=== PATIENT | female | born 1950 | race Caucasian/White ===

== ENCOUNTER → 2017-04-02 | Outpatient (CLI) | payer MEDICARE ==
[~2017-04-02] MED LIST: ADVAIR 250-501 EACH INH; ASPIR-LOW81 MG PO; AZITHROMYCIN250 MG PO; COLCHICINE 0.60.6 MG PO; COMBIVENT0.074 GM/I INH; CORDARONE 200M200 MG PO; COZAAR50 MG PO; CRESTOR10 MG PO; CRESTOR20 MG PO; KLOR-CON M1010 MEQ PO; LASIX TAB 20 MG20 MG PO; LEVOTHYROXINE25 MCG PO; NITROGLYCERIN2.5 M1 PO; NITROSTAT 0.40.4 MG SL; NORCO 10-325 T1 EACH PO; PLAVIX 75 MG TA75 MG PO; PROTONIX40 MG PO; TOPROL XL 100100 MG PO; TRADJENTA5 MG PO; VENTOLIN/PROVE0.5 ML INH; ZOCOR 40 MG TAB40 MG PO; ZYLOPRIM 100 M100 MG PO
== END ==
LOC: EXRD 09:42
DX: M25.551 Pain in right hip (principal)
CPT/HCPCS: 73502

== ENCOUNTER → 2017-06-19 | Outpatient (CLI) | payer MEDICARE | LOC: NM 11:50 | DX: I20.9 Angina pectoris, unspecified (principal); I51.7 Cardiomegaly; R94.39 Abnormal result of other cardiovascular function study | CPT/HCPCS: 78452; 93017; A9502; J2785 ==

== ENCOUNTER 2020-11-30 15:30 | Inpatient (IN) | payer OTHER ==
[~2020-11-30] VITALS: Ht 152.4 cm; Wt 71.5 kg
[~2020-11-30 15:30] MED LIST changes: +ALBUTEROL2.5 MG/3 M INH; +BUMEX 1MG TABLET1 MG GT; +BUMEX 1MG TABLET1 MG PO; -CRESTOR20 MG PO; +FUROSEMIDE40 MG PO; +LASIX40 MG PO; +LOSARTAN POTASS25 MG PO; +NITROGLYCERIN2.5 MG PO; +SPIRONOLACTONE25 MG PO; +SYNTHROID75 MCG PO; +TOPROL XL25 MG PO; -VENTOLIN/PROVE0.5 ML INH
[2020-11-30 16:17] LABS: HEMOGLOBIN 14.1 gm/dl (12.3-15.3); RED BLOOD COUNT 4.26 M/UL (4.00-5.10); WHITE BLOOD COUNT 10.8 K/UL (4.5-11.0)
[2020-11-30] MEDS ORDERED: ROCALTROL CA0.25 MCG PO (18:33)
[2020-11-30] MEDS ORDERED: COZAAR50 MG PO (18:34)
[2020-12-01 06:27] LABS: HEMOGLOBIN 13.1 gm/dl (12.3-15.3); RED BLOOD COUNT 3.97 M/UL (4.00-5.10); WHITE BLOOD COUNT 8.4 K/UL (4.5-11.0)
[2020-12-02 05:28] LABS: HEMOGLOBIN 12.9 gm/dl (12.3-15.3); RED BLOOD COUNT 3.93 M/UL (4.00-5.10); WHITE BLOOD COUNT 10.2 K/UL (4.5-11.0)
[2020-12-05 04:50] LABS: HEMOGLOBIN 11.9 gm/dl (12.3-15.3); RED BLOOD COUNT 3.62 M/UL (4.00-5.10); WHITE BLOOD COUNT 9.9 K/UL (4.5-11.0)
[2020-12-07] MEDS ORDERED: MECLIZINE HCL25 MG PO (17:03)
[2020-12-07] MEDS ORDERED: NITROGLYCERIN2.5 MG PO (17:03)
== END 2020-12-07 18:36 | disposition home or self-care (01) | DRG 291 ==
LOC: ER1 15:30 → CDU 18:00 → MED SURG 4 18:00
PROVIDERS: Internal Medicine; Internal Medicine Nephrology; ADMIT Family Medicine
PROC: B24BZZZ Ultrasonography of Heart with Aorta (ICD-10-PCS; principal; 2020-11-30)
DX: I13.0 Hypertensive heart and chronic kidney disease with heart failure and stage 1 through stage 4 chronic kidney disease, or unspecified chronic kidney disease (principal); I50.43 Acute on chronic combined systolic (congestive) and diastolic (congestive) heart failure; N17.9 Acute kidney failure, unspecified; E87.1 Hypo-osmolality and hyponatremia; N18.4 Chronic kidney disease, stage 4 (severe); E87.3 Alkalosis; I47.2 Ventricular tachycardia; I42.2 Other hypertrophic cardiomyopathy; I25.10 Atherosclerotic heart disease of native coronary artery without angina pectoris; E11.22 Type 2 diabetes mellitus with diabetic chronic kidney disease; H81.10 Benign paroxysmal vertigo, unspecified ear; E78.5 Hyperlipidemia, unspecified; E03.9 Hypothyroidism, unspecified; J44.9 Chronic obstructive pulmonary disease, unspecified; M10.9 Gout, unspecified; R06.00 Dyspnea, unspecified; F17.210 Nicotine dependence, cigarettes, uncomplicated; Z90.49 Acquired absence of other specified parts of digestive tract; Z95.810 Presence of automatic (implantable) cardiac defibrillator
CPT/HCPCS: ECHO; 0240U; 36415; 70450; 71045; 80048; 80053; 80061; 80069; 82533; 82550; 82553; 82803; 82962; 83036; 83735; 83880; 83970; 84484; 85025; 85610; 93005; 93306; 94640; 94664; 94760; 96372; 96374; 96375; 97161; 99285; J1644; J1940

== ENCOUNTER 2021-04-01 18:10 | Inpatient (IN) | payer OTHER ==
[~2021-04-01] VITALS: Ht 152.4 cm; Wt 70.3 kg
[~2021-04-01 18:10] MED LIST changes: +MECLIZINE HCL25 MG PO; +ROCALTROL CA0.25 MCG PO
[2021-04-01 18:42] LABS: HEMOGLOBIN 11.6 gm/dl (12.3-15.3); RED BLOOD COUNT 3.57 M/UL (4.00-5.10); WHITE BLOOD COUNT 10.1 K/UL (4.5-11.0)
[2021-04-02 05:11] LABS: HEMOGLOBIN 11.2 gm/dl (12.3-15.3); RED BLOOD COUNT 3.46 M/UL (4.00-5.10); WHITE BLOOD COUNT 9.6 K/UL (4.5-11.0)
[2021-04-02] MEDS ORDERED: NITROGLYCERIN2.5 MG PO (12:01)
[2021-04-02] MEDS ORDERED: CALCITRIOL0.25 MCG PO (12:02)
[2021-04-02] MEDS ORDERED: LIPITOR20 MG PO (17:08)
[2021-04-02] MEDS ORDERED: GLUCOTROL5 MG PO (18:26)
[2021-04-02] MEDS ORDERED: VASCEPA1 GM PO (18:29)
[2021-04-02] MEDS ORDERED: ZAROXOLYN/DIULO5 MG PO (18:35)
[2021-04-03 04:31] LABS: HEMOGLOBIN 10.6 gm/dl (12.3-15.3); RED BLOOD COUNT 3.29 M/UL (4.00-5.10); WHITE BLOOD COUNT 9.4 K/UL (4.5-11.0)
[2021-04-04 03:37] LABS: RED BLOOD COUNT 3.4 M/UL (4.00-5.10); WHITE BLOOD COUNT 8.3 K/UL (4.5-11.0)
[2021-04-04] MEDS ORDERED: BUMETANIDE1 MG PO (11:59)
[2021-04-04] MEDS ORDERED: MUCINEX600 MG PO (11:59)
[2021-04-04] MEDS ORDERED: OMNICEF 300 MG300 MG PO (11:59)
[2021-04-04] MEDS ORDERED: ZYRTEC10 MG PO (12:02)
--- NOTE | 2021-04-04 12:16 | NUR ---
patient o2 sat 86% on room air
== END 2021-04-04 14:33 | disposition home or self-care (01) | DRG 291 ==
LOC: ER1 18:10 → CDU 22:55 → CCU 22:55 → M/S 04-03 21:22
PROVIDERS: Emergency Medicine; Internal Medicine; Internal Medicine Nephrology; ADMIT Internal Medicine
DX: I13.0 Hypertensive heart and chronic kidney disease with heart failure and stage 1 through stage 4 chronic kidney disease, or unspecified chronic kidney disease (principal); J96.21 Acute and chronic respiratory failure with hypoxia; I50.43 Acute on chronic combined systolic (congestive) and diastolic (congestive) heart failure; N17.9 Acute kidney failure, unspecified; N18.4 Chronic kidney disease, stage 4 (severe); E87.1 Hypo-osmolality and hyponatremia; J41.1 Mucopurulent chronic bronchitis; I25.10 Atherosclerotic heart disease of native coronary artery without angina pectoris; I65.29 Occlusion and stenosis of unspecified carotid artery; B96.20 Unspecified Escherichia coli [E. coli] as the cause of diseases classified elsewhere; I42.2 Other hypertrophic cardiomyopathy; F17.200 Nicotine dependence, unspecified, uncomplicated; I44.7 Left bundle-branch block, unspecified; E03.9 Hypothyroidism, unspecified; E66.9 Obesity, unspecified; M10.9 Gout, unspecified; D53.9 Nutritional anemia, unspecified; E78.5 Hyperlipidemia, unspecified; K21.9 Gastro-esophageal reflux disease without esophagitis; Z95.1 Presence of aortocoronary bypass graft; Z68.30 Body mass index [BMI] 30.0-30.9, adult; Z95.810 Presence of automatic (implantable) cardiac defibrillator; Z90.49 Acquired absence of other specified parts of digestive tract; Z83.3 Family history of diabetes mellitus; Z90.710 Acquired absence of both cervix and uterus; Z82.49 Family history of ischemic heart disease and other diseases of the circulatory system; Z80.3 Family history of malignant neoplasm of breast
CPT/HCPCS: ECHO; 36415; 36600; 71046; 80048; 80053; 80061; 81001; 82550; 82553; 82570; 82803; 82962; 83036; 83735; 83874; 83880; 84100; 84133; 84156; 84300; 84484; 85025; 85027; 86140; 87070; 87077; 87186; 87205; 89050; 93005; 93306; 94640; 94664; 94760; 96374; 96376; 99285; J1644; P9047; U0002

== ENCOUNTER 2021-05-17 17:27 | Emergency (ER) | payer OTHER ==
[~2021-05-17 17:27] MED LIST changes: +BUMETANIDE1 MG PO; +CALCITRIOL0.25 MCG PO; +GLUCOTROL5 MG PO; +LIPITOR20 MG PO; +MUCINEX600 MG PO; +OMNICEF 300 MG300 MG PO; +VASCEPA1 GM PO; +ZAROXOLYN/DIULO5 MG PO; +ZYRTEC10 MG PO
[2021-05-17 19:21] LABS: HEMOGLOBIN 12.6 gm/dl (12.3-15.3); RED BLOOD COUNT 3.89 M/UL (4.00-5.10); WHITE BLOOD COUNT 10.1 K/UL (4.5-11.0)
== END 2021-05-17 23:00 | disposition home or self-care (01) ==
LOC: ER1 17:27
PROVIDERS: Physician Assistant
DX: R06.00 Dyspnea, unspecified (principal); I11.0 Hypertensive heart disease with heart failure; I50.9 Heart failure, unspecified; J44.9 Chronic obstructive pulmonary disease, unspecified; E11.9 Type 2 diabetes mellitus without complications; E03.9 Hypothyroidism, unspecified; F17.210 Nicotine dependence, cigarettes, uncomplicated; Z90.49 Acquired absence of other specified parts of digestive tract
CPT/HCPCS: 71045; 80053; 82550; 82553; 83874; 83880; 84484; 85025; 99285

== ENCOUNTER 2022-03-20 14:12 | Inpatient (IN) | payer MEDICARE ==
[~2022-03-20] VITALS: Ht 152.4 cm; Wt 59.0 kg
[~2022-03-20 14:12] MED LIST changes: -ASPIR-LOW81 MG PO; +ASPIRIN EC81 MG PO
[2022-03-20 15:07] LABS: HEMOGLOBIN 13.4 gm/dl (12.3-15.3); RED BLOOD COUNT 4.08 M/UL (4.00-5.10); WHITE BLOOD COUNT 19.5 K/UL (4.5-11.0)
[2022-03-20] MEDS ORDERED: FARXIGA10 MG PO (18:37)
[2022-03-20] MEDS ORDERED: FENOFIBRATE145 MG PO (18:38)
[2022-03-20] MEDS ORDERED: BUMETANIDE1 MG PO (18:38)
[2022-03-20] MEDS ORDERED: CRESTOR20 MG PO (18:39)
[2022-03-20] MEDS ORDERED: POTASSIUM CHLO20 ME1 PO (18:39)
[2022-03-21 03:35] LABS: HEMOGLOBIN 12.4 gm/dl (12.3-15.3); RED BLOOD COUNT 3.89 M/UL (4.00-5.10); WHITE BLOOD COUNT 18.1 K/UL (4.5-11.0)
[2022-03-21 18:12] LABS: KPC-CARBAPENEM-RESISTANCE GENE Not Detected (Negative); STAPHYLOCOCCUS AUREUS Not Detected (Negative); STREP AGALACTIAE (GROUP B) Not Detected (Negative); STREPTOCOCCUS Not Detected (Negative); vanA/B (VANCOMYCIN RESIST GENE Not Detected (Negative)
[2022-03-21 18:13] LABS: CANDIDA ALBICANS Not Detected (Negative); CANDIDA KRUSEI Not Detected (Negative); CANDIDA TROPICALIS Not Detected (Negative); ESCHERICHIA COLI Not Detected (Negative); HAEMOPHILUS INFLUENZAE Not Detected (Negative); KLEBSIELLA OXYTOCA Not Detected (Negative); KLEBSIELLA PNEUMONIAE Not Detected (Negative); PROTEUS Not Detected (Negative); PSEUDOMONAS AERUGINOSA Not Detected (Negative); SERRATIA MARCESANS Not Detected (Negative); STREP PYOGENES (GROUP A) Not Detected (Negative)
[2022-03-21 19:22] LABS: STAPHYLOCOCCUS DETECTED (Negative)
[2022-03-22 04:38] LABS: HEMOGLOBIN 11.5 gm/dl (12.3-15.3); RED BLOOD COUNT 3.64 M/UL (4.00-5.10); WHITE BLOOD COUNT 20.2 K/UL (4.5-11.0)
[2022-03-23 05:29] LABS: HEMOGLOBIN 11.5 gm/dl (12.3-15.3); RED BLOOD COUNT 3.66 M/UL (4.00-5.10)
[2022-03-24 02:23] LABS: RED BLOOD COUNT 3.77 M/UL (4.00-5.10); WHITE BLOOD COUNT 15.8 K/UL (4.5-11.0)
[2022-03-25 02:35] LABS: HEMOGLOBIN 12.2 gm/dl (12.3-15.3); RED BLOOD COUNT 3.91 M/UL (4.00-5.10); WHITE BLOOD COUNT 13.5 K/UL (4.5-11.0)
[2022-03-26 06:58] LABS: HEMOGLOBIN 12.4 gm/dl (12.3-15.3); RED BLOOD COUNT 3.95 M/UL (4.00-5.10); WHITE BLOOD COUNT 13.5 K/UL (4.5-11.0)
[2022-03-28 06:41] LABS: HEMOGLOBIN 12.4 gm/dl (12.3-15.3); RED BLOOD COUNT 3.96 M/UL (4.00-5.10)
--- NOTE | 2022-03-28 09:12 | NUR ---
0905- Notified Dr. So of patient having increased shortness of breath and requesting her home dose of bumex. MD informed of oxygen level in the 80s and patient put on high flow oxygen at 5L. New order for albumin 12.5mg IV once and bumex 1mg IV one time order.
--- NOTE | 2022-03-29 17:39 | NUR ---
PATIENT OXYGENATION SATURATION NOTED TO BE 78% ON 5 LITERS HIGH FLOW NASAL CANNULA. RN NOTIFIED RESPIRATORY THERAPY AND THEY CAME TO ASSESS PATIENT. RN AND RESPIRATORY THERAPIST INCREASED OXYEGN TO 15 LITERS AND ONLY INCREASED PATIENT'S OXYGEN SATURATION TO 86%. RN MADE DR. PARNELL AWARE. MD ORDERED BUMEX IVP. PATIENT COMPLAINED OF CHEST PAIN. RN ADMINISTERED ONE DOSE OF PRN NITROGLYCERIN. PATIENT VERBALIZED RELIEF. MD MADE AWARE. RESPIRATORY THERAPIST SPOKE WITH MD AND REQUESTED ABG AND BIPAP. NO S/SX OF DISTRESS. BED LOCKED AND LOW. CALL LIGHT WITHIN REACH. FAMILY AT BEDSIDE.
[2022-03-30 06:00] LABS: HEMOGLOBIN 11.8 gm/dl (12.3-15.3); RED BLOOD COUNT 3.77 M/UL (4.00-5.10); WHITE BLOOD COUNT 16.4 K/UL (4.5-11.0)
--- NOTE | 2022-03-31 07:29 | NUR ---
PATIENT NOTED TO HAVE RESPIRATORY DIFFICULTY ON NASAL CANNULA THIS AM. OXYGEN SATURATION NOTED TO BE IN THE MID TO LOW 70'S AND PATIENT HEART RATE NOTED TO BE 110. TELEMETRY NOTIFIED RN OF PATIENT'S RHYTHM GOING INTO AFIB RVR THEN PACE MAKER KICKING IN. RN APPLIED PATIENT'S BIPAP TO COMPENSATE FOR HYPOXIA. PATIENT'S OXYGEN INCREASED TO 100% AND HEART RATE RETURNED TO SINUS RHYTHM 60-70. RN NOTIFIED ONCALL RELATIONSHIP MANAGER, DR. STREETER OF PATIENT'S EPISODE THIS AM. MD STATED PATIENT'S INCREASE IN HEART RATE WAS DUE TO HYPOXIA AND WAS NOT A CONCERN LONG IT NORMALIZED WHEN PATIENT BECAME PROPERLY OXYGENATED. DR. STREETER INSTRUCTED RN TO NOTIFY DAY SHIFT HOSPITALIST FOR FURTHER INSTRUCTION IF THESE COMPLICATIONS PERSISTED. RN PLACED COPY OF TELEMETRY STRIP IN FRONT OF PATIENT'S CHART. PATIENT RESTING IN BED. CALL LIGHT WITHIN REACH. NO S/SX OF DISTRESS NOTED. DAUGHTER AT BEDSIDE.
[2022-04-01 06:33] LABS: HEMOGLOBIN 12.1 gm/dl (12.3-15.3); RED BLOOD COUNT 3.85 M/UL (4.00-5.10); WHITE BLOOD COUNT 14.1 K/UL (4.5-11.0)
[2022-04-03 13:18] LABS: BUN/CREATININE RATIO 53 (0-10)
[2022-04-03 15:46] LABS: WBC (AUTOMATED) 301 10^3
[2022-04-03 15:47] LABS: RBC (AUTOMATED) 2500 10^6
[2022-04-03 15:48] LABS: MONONUCLEAR CELLS 92.7 %; POLYMORPHONUCLEAR 7.3 %
[2022-04-04 09:28] LABS: HEMOGLOBIN 11.2 gm/dl (12.3-15.3); RED BLOOD COUNT 3.56 M/UL (4.00-5.10)
[2022-04-04 16:41] LABS: LDH, BODY FLUID 113 U/L; TOTAL PROTEIN, BODY FLUID 1.4 gm/dL
[2022-04-04 17:59] LABS: ADENOVIRUS F 40/41 Not Detected (Negative); ASTROVIRUS Not Detected (Negative); CAMPYLOBACTER Not Detected (Negative); E.COLI 0157 Not Detected (Negative); ENTAMOEBA HISTOLYTICA Not Detected (Negative); ENTEROAGGREGATIVE E.COLI (EAEC Not Detected (Negative); ENTEROPATHOGENIC E.COLI (EPEC) Not Detected (Negative); ENTEROTOXIGENIC E.COLI (ETEC) Not Detected (Negative); GIARDIA LAMBLIA Not Detected (Negative); NOROVIRUS GI/GII Not Detected (Negative); PLESIOMONAS SHIGELLOIDES Not Detected (Negative); ROTOVIRUS A Not Detected (Negative); SALMONELLA Not Detected (Negative); SAPOVIRUS Not Detected (Negative); SHIG/ENTEROINVAS.ECOLI (EIEC) Not Detected (Negative); SHIGA-LIK TOX.PRO.E.COLI (STEC Not Detected (Negative); VIBRIO Not Detected (Negative); VIBRIO CHOLERAE Not Detected (Negative); YERSINIA ENTEROCOLITICA Not Detected (Negative)
--- NOTE | 2022-04-05 03:03 | NUR ---
LATE ENTRY FOR 04/04/2022 @ 18:45 - During bedside shift report, oncoming and offgoing RNs attempted to place DNR bracelet on patient. Patient stated that she "just wants to leave things how she talked with MD Felton this morning" and is requesting to not wear bracelet. Patient states she doesn't want family to be made aware of her decision to be DNR status. Patient states she doesn't want family to argue about her decision. RNs told patient that staff involved in her care will be informed of her code status. Patient verbalized understanding, alert and oriented x3, capable of making own decisions.
[2022-04-05 13:29] LABS: CRYPTOSPORIDIUM DETECTED (Negative)
--- NOTE | 2022-04-06 11:15 | NUR ---
DR. HERNÁNDEZ SPOKE WITH FAMILY OVER PHONE AND IN PATIENT ROOM ABOUT RISKS AND BENEFITS OF A REPEAT THORACENTESIS THIS AM. PATIENT AND FAMILY VERBALIZED UNDERSTANDING AND STATED THEY WISHED TO PROCEED WITH PROCEDURE. CONSENT SIGNED BY DR. HERNÁNDEZ AND WITNESSED BY RN, VERBAL CONSENT PER PATIENT PATIENT NOTED TO BE FATIGUED AND UNABLE TO SIGN AT PRESENT.
--- NOTE | 2022-04-06 11:43 | NUR ---
DR. HERNÁNDEZ PERFORMED BEDSIDE THORACENTESIS UTILIZING ULTRASOUND. RN ASSISTED WITH PROCEDURE AND 400 ML OF FLUID WAS DRAINED FROM LEFT LUNG. FLUID APPEARED DARK YELLOW AND SPECIMEN SAMPLES WERE SENT TO LAB. PATIENT VERBALIZED IMPROVED VENTILATION AFTER FLUID WAS REMOVED AND ASKED FOR A POPSICLE. DR. HERNÁNDEZ PLACED A BANDAID TO COLLECTION SIDE TO LEFT SIDE. NO BLEEDING NOTED. NO S/SX OF PAIN OR DISTRESS NOTED TO PATIENT. PATIENT PENDING CT PER DR. HERNÁNDEZ ORDER. BED LOCKED AND LOW. FAMILY UPDATED AT BEDSIDE OF CONDITION, VERBALIZED UNDERSTANDING. CALL LIGHT WITHIN REACH.
[2022-04-06 12:52] LABS: MONONUCLEAR CELLS 81.7 (75-100); POLYMORPHONUCLEAR % 18.3 (0-25); RBC (AUTOMATED) 1400 (0-100000); WBC (AUTOMATED) 317 (0-500)
--- NOTE | 2022-04-06 13:00 | NUR ---
RN CALLED CT DEPARTMENT TO VERIFY STAT CT HAD BEEN PLACED. CT STATED THEY WOULD BE THERE SOON POSSIBLE. RN TO NOTIFY DR. HERNÁNDEZ WHEN SCAN IS PERFORMED AND RESULTED.
[2022-04-06 13:27] LABS: AMYLASE, BODY FLUID 45 U/L; LDH, BODY FLUID 101 U/L
--- NOTE | 2022-04-06 16:30 | NUR ---
RN AND STAFF TOOK PATIENT TO HAVE CT SCAN PERFORMED THEN BROUGHT BACK TO ROOM. NO S/SX OF PAIN OR DISTRESS. RN NOTIFIED DR. HERNÁNDEZ THAT SCAN HAD BEEN PERFORMED AND IMAGES SHOULD BE AVAILABLE TO BE SEEN ON HIS END PER RADIOLOGY DEPARTMENT EMPLOYEE. MD STATED HE WOULD LOOK AT SCANS. PATIENT RESTING IN BED WITH EYES CLOSED. BED LOCKED AND LOW. CALL LIGHT WITHIN REACH. FAMILY AT BEDSIDE.
[2022-04-07 02:57] LABS: HEMOGLOBIN 9.9 gm/dl (12.3-15.3); RED BLOOD COUNT 3.08 M/UL (4.00-5.10); WHITE BLOOD COUNT 11.4 K/UL (4.5-11.0)
--- NOTE | 2022-04-07 06:10 | NUR ---
DRESSING CHANGED ON PATIENT BUTTOCKS, PACKING STRIPS PLACED IN WOUNDS, NON ADHERENT DRESSING PLACED AND ALLEYVN PLACED OVER THAT, ALLEVYN PLACED ON PATIENT LEFT HIP TO PREVENT PRESSURE ULCERS
[2022-04-08 06:51] LABS: HEMOGLOBIN 9.8 gm/dl (12.3-15.3); RED BLOOD COUNT 3.07 M/UL (4.00-5.10); WHITE BLOOD COUNT 12.7 K/UL (4.5-11.0)
[2022-04-09 01:59] LABS: HEMOGLOBIN 9.5 gm/dl (12.3-15.3); WHITE BLOOD COUNT 10.8 K/UL (4.5-11.0)
[2022-04-10 06:26] LABS: HEMOGLOBIN 9.9 gm/dl (12.3-15.3); RED BLOOD COUNT 3.13 M/UL (4.00-5.10); WHITE BLOOD COUNT 9.8 K/UL (4.5-11.0)
[2022-04-11 06:44] LABS: HEMOGLOBIN 9.6 gm/dl (12.3-15.3); RED BLOOD COUNT 3.01 M/UL (4.00-5.10); WHITE BLOOD COUNT 8.2 K/UL (4.5-11.0)
== END 2022-04-12 00:20 | disposition home or self-care (01) | DRG 871 ==
LOC: ER1 14:12 → MED SURG 4 16:17 → CDU 16:17 → MED SURG 4 21:42
PROVIDERS: Internal Medicine; Internal Medicine Critical Care Medicine; Internal Medicine Infectious Disease; Internal Medicine Nephrology; Physician Assistant; Physician Assistant Medical; ADMIT Internal Medicine
PROC: 0J980ZZ Drainage of Abdomen Subcutaneous Tissue and Fascia, Open Approach (ICD-10-PCS; 2022-03-21)
PROC: B24BZZZ Ultrasonography of Heart with Aorta (ICD-10-PCS; principal; 2022-03-22)
PROC: 5A0935A Assistance with Respiratory Ventilation, Less than 24 Consecutive Hours, High Flow/Velocity Cannula (ICD-10-PCS; 2022-03-28)
PROC: 5A09357 Assistance with Respiratory Ventilation, Less than 24 Consecutive Hours, Continuous Positive Airway Pressure (ICD-10-PCS; 2022-03-29)
PROC: 5A0935A Assistance with Respiratory Ventilation, Less than 24 Consecutive Hours, High Flow/Velocity Cannula (ICD-10-PCS; 2022-03-29)
PROC: 5A09357 Assistance with Respiratory Ventilation, Less than 24 Consecutive Hours, Continuous Positive Airway Pressure (ICD-10-PCS; 2022-03-29)
PROC: 5A0935A Assistance with Respiratory Ventilation, Less than 24 Consecutive Hours, High Flow/Velocity Cannula (ICD-10-PCS; 2022-03-29)
PROC: 5A09457 Assistance with Respiratory Ventilation, 24-96 Consecutive Hours, Continuous Positive Airway Pressure (ICD-10-PCS; 2022-03-30)
PROC: 5A09357 Assistance with Respiratory Ventilation, Less than 24 Consecutive Hours, Continuous Positive Airway Pressure (ICD-10-PCS; 2022-04-03)
PROC: BB4BZZZ Ultrasonography of Pleura (ICD-10-PCS; 2022-04-03)
PROC: 0W9B3ZZ Drainage of Left Pleural Cavity, Percutaneous Approach (ICD-10-PCS; 2022-04-03)
PROC: 5A09357 Assistance with Respiratory Ventilation, Less than 24 Consecutive Hours, Continuous Positive Airway Pressure (ICD-10-PCS; 2022-04-04)
PROC: 0W9B3ZZ Drainage of Left Pleural Cavity, Percutaneous Approach (ICD-10-PCS; 2022-04-06)
PROC: BB4BZZZ Ultrasonography of Pleura (ICD-10-PCS; 2022-04-06)
PROC: 5A0945A Assistance with Respiratory Ventilation, 24-96 Consecutive Hours, High Flow/Velocity Cannula (ICD-10-PCS; 2022-04-10)
DX: A41.1 Sepsis due to other specified staphylococcus (principal); E43 Unspecified severe protein-calorie malnutrition; Z20.822 Contact with and (suspected) exposure to COVID-19; Z66 Do not resuscitate; I21.4 Non-ST elevation (NSTEMI) myocardial infarction; I50.23 Acute on chronic systolic (congestive) heart failure; J96.21 Acute and chronic respiratory failure with hypoxia; J96.22 Acute and chronic respiratory failure with hypercapnia; J18.9 Pneumonia, unspecified organism; L02.31 Cutaneous abscess of buttock; I13.0 Hypertensive heart and chronic kidney disease with heart failure and stage 1 through stage 4 chronic kidney disease, or unspecified chronic kidney disease; L03.317 Cellulitis of buttock; N17.9 Acute kidney failure, unspecified; E87.3 Alkalosis; J44.1 Chronic obstructive pulmonary disease with (acute) exacerbation; I42.2 Other hypertrophic cardiomyopathy; J93.9 Pneumothorax, unspecified; J44.0 Chronic obstructive pulmonary disease with (acute) lower respiratory infection; I25.5 Ischemic cardiomyopathy; R65.20 Severe sepsis without septic shock; R62.7 Adult failure to thrive; E78.5 Hyperlipidemia, unspecified; E03.9 Hypothyroidism, unspecified; K21.9 Gastro-esophageal reflux disease without esophagitis; N18.32 Chronic kidney disease, stage 3b; I44.7 Left bundle-branch block, unspecified; F17.210 Nicotine dependence, cigarettes, uncomplicated; E87.6 Hypokalemia; L30.3 Infective dermatitis; E11.22 Type 2 diabetes mellitus with diabetic chronic kidney disease; R53.81 Other malaise; I45.81 Long QT syndrome; D63.1 Anemia in chronic kidney disease; M10.9 Gout, unspecified; E11.51 Type 2 diabetes mellitus with diabetic peripheral angiopathy without gangrene; G47.33 Obstructive sleep apnea (adult) (pediatric); I08.1 Rheumatic disorders of both mitral and tricuspid valves; I25.10 Atherosclerotic heart disease of native coronary artery without angina pectoris; Z95.5 Presence of coronary angioplasty implant and graft; Z95.1 Presence of aortocoronary bypass graft; Z79.4 Long term (current) use of insulin; Z95.810 Presence of automatic (implantable) cardiac defibrillator; Z79.01 Long term (current) use of anticoagulants; Z79.82 Long term (current) use of aspirin; I25.2 Old myocardial infarction; Z99.81 Dependence on supplemental oxygen; Z68.25 Body mass index [BMI] 25.0-25.9, adult
CPT/HCPCS: ECHO; 0240U; 36415; 36600; 71045; 71046; 71250; 80048; 80053; 80202; 81001; 82150; 82533; 82550; 82553; 82570; 82728; 82803; 82945; 82962; 83036; 83540; 83550; 83605; 83615; 83735; 83880; 83986; 84100; 84155; 84156; 84157; 84439; 84443; 84484; 85025; 85027; 87015; 87040; 87070; 87075; 87077; 87086; 87116; 87150; 87186; 87205; 87507; 89051; 93005; 93306; 94640; 94660; 94664; 94668; 94760; 96365; 96366; 96368; 96375; 97110; 97110-GP-CQ; 97116; 97116-GP-CQ; 97161; 97165; 97530; 97530-GP-CQ; 97535; 99285; A6212; J0696; J1644; J1756; J1940; J2185; J2543; J2920; J3370; J7030; J7070; P9047